=== PATIENT | female | born 1980 | race Caucasian/White ===

== ENCOUNTER 2016-12-21 11:02 | Emergency (ER) | payer OTHER ==
[~2016-12-21] VITALS: Ht 160 cm; Wt 71.9 kg
[~2016-12-21 11:02] MED LIST: ADVAIR 500-501 EACH IH; BACTRIM,SEPT1 TABLET PO; CLINDAMYCIN HC300 MG PO; CYMBALTA20 MG; GLIMEPIRIDE4 MG PO; GLIPIZIDE5 M1 PO; GLUCOPHAGE500 M1 PO; KEFLEX500 MG PO; KLONOPIN0.5 M1 PO; LISINOPRIL10 MG PO; LISINOPRIL2.5 MG PO; METFORMIN HCL500 M1 PO; MOTRIN IB200 MG PO; MOTRIN600 MG PO; NAPROSYN500 MG PO; NORCO 5/3251 TABLET PO; PERCOCET 5/31 TABLET PO; PRAVASTATIN SOD10 MG PO; PROVENTIL,200 INHALA IH; TRULICITY0.75 MG/0. SC; VENTOLIN HFA18 GM IH
[2016-12-21 12:12] LABS: HEMATOCRIT 40.7 % (36.0-46.0); MCHC 33.4 G/DL (30.0-36.0); MCV 92.7 FL (83-99); MEAN PLAT.VOLUME 11.3 uM^3 (9.5-12.4); PLATELET COUNT 311 K/uL (156-360); RBC DIS.WIDTH-CV 11.7 % (11.8-14.6); RBC DIS.WIDTH-SD 39.8 % (39-53); RED BLOOD COUNT 4.39 M/uL (3.80-5.20)
[2016-12-21 12:24] LABS: CHLORIDE 109 mEq/L (99-109); POTASSIUM 3.9 mEq/L (3.7-5.4); SODIUM 140 mEq/L (136-147)
[2016-12-21 12:26] LABS: GLUCOSE 165 mg/dL (70-99)
[2016-12-21 12:28] LABS: ANION GAP 7 MEQ/L (2-14); TOTAL BILIRUBIN 0.3 mg/dL (0.0-1.0)
[2016-12-21 12:30] LABS: ALKALINE PHOSPHATASE 82 IU/L (3-129); GFR ESTIMATE (CALCULATED) > 59 mL/min/
[2016-12-21 12:31] LABS: UREA NITROGEN (BUN) 14 mg/dL (9-23)
[2016-12-21 14:07] LABS: ADD MIUA? NO; BILIRUBIN NEGATIVE; BLOOD NEGATIVE; COLOR STRAW ((YELLOW)); GLUCOSE (STRIP) NEGATIVE; KETONES NEGATIVE; LEUKOCYTES NEGATIVE; NITRITE NEGATIVE; PROTEIN (STRIP) NEGATIVE; SPECIFIC GRAVITY 1.014 (1.000-1.030); UROBILINOGEN 0.2 MG/DL (0.2-1.0)
[2016-12-21 14:59] LABS: QUANTITATIVE HCG < 4.0 MIU/ML
[2016-12-21] MEDS ORDERED: MOTRIN800 MG PO (14:59)
[2016-12-21] MEDS ORDERED: BENTYL20 MG PO (14:59)
[2016-12-21] MEDS ORDERED: ZOFRAN ODT4 MG PO (14:59)
[2016-12-21 15:56] VITALS: BP 1118/72
== END 2016-12-21 15:57 | disposition home or self-care (01) ==
LOC: EME 11:02
PROVIDERS: Nurse Practitioner Family
DX: K29.70 Gastritis, unspecified, without bleeding (principal); E11.9 Type 2 diabetes mellitus without complications; J45.909 Unspecified asthma, uncomplicated
CPT/HCPCS: 74000; 80053; 81003; 84702; 85027; 99281; 99284; J0500; J2405; J7030

== ENCOUNTER → 2017-01-12 | Outpatient (CLI) | payer OTHER ==
[~2017-01-12] VITALS: Ht 160 cm; Wt 68.0 kg
[~2017-01-12] MED LIST changes: +BENTYL20 MG PO; +MOTRIN800 MG PO; +TRULICITY1.5 MG/0.5 SC; +ZOFRAN ODT4 MG PO
[2017-01-12 10:48] LABS: POINT-OF-CARE METER ID UU13113694
== END | disposition home or self-care (01) ==
LOC: AMB 09:06
PROVIDERS: Urology
DX: N20.2 Calculus of kidney with calculus of ureter (principal); E11.9 Type 2 diabetes mellitus without complications
CPT/HCPCS: 74010; 82948; 93005; J2250; J2405; J3010

== ENCOUNTER 2018-02-23 22:13 | Emergency (ER) | payer OTHER ==
[~2018-02-23] VITALS: Ht 160 cm; Wt 69.2 kg
[2018-02-24 00:08] LABS: BASOPHIL (%) 0.9 % (0-1); BASOPHIL COUNT 0.1 K/uL (0-0.1); EOSINOPHIL (%) 4.2 % (0-5); EOSINOPHIL COUNT 0.4 K/uL (0-0.3); HEMATOCRIT 40.2 % (36.0-46.0); HEMOGLOBIN 14.1 G/DL (11.9-15.5); IMMATURE GRANULOCYTE (%) 0.2 % (0.0-0.7); LYMPHOCYTE (%) 31.8 % (15-42); LYMPHOCYTE COUNT 3.1 K/uL (1.0-2.8); MCH 31.8 PG (29.0-34.0); MCHC 35.1 G/DL (30.0-36.0); MCV 90.7 FL (83-99); MONOCYTE (%) 5.2 % (3-12); MONOCYTE COUNT 0.5 K/uL (0-0.8); NEUTROPHIL (%) 57.7 % (45-76); NEUTROPHIL COUNT 5.6 K/uL (1.8-6.4); PLATELET COUNT 317 K/uL (156-360); RBC DIS.WIDTH-CV 11.2 % (11.8-14.6); RBC DIS.WIDTH-SD 37.2 % (39-53); RED BLOOD COUNT 4.43 M/uL (3.80-5.20); WHITE BLOOD COUNT 9.7 K/uL (4.1-10.2)
[2018-02-24 00:17] VITALS: BP 126/95
[2018-02-24 00:20] LABS: ALBUMIN 3.8 g/dL (3.2-4.8)
[2018-02-24 00:21] LABS: CHLORIDE 99 mEq/L (99-109); POTASSIUM 3.9 mEq/L (3.7-5.4); SODIUM 136 mEq/L (136-147)
[2018-02-24 00:23] LABS: GLUCOSE 295 mg/dL (70-99); TOTAL PROTEIN 7.6 g/dL (6.4-8.3)
[2018-02-24 00:25] LABS: TOTAL BILIRUBIN 0.3 mg/dL (0.0-1.0)
[2018-02-24 00:26] LABS: ALKALINE PHOSPHATASE 115 IU/L (3-129)
[2018-02-24 00:27] LABS: CREATININE 0.8 mg/dL (0.6-1.3); GFR ESTIMATE (CALCULATED) > 59 mL/min/
[2018-02-24 00:28] LABS: AST (GOT) 17 IU/L (2-34); DIRECT BILIRUBIN 0.1 mg/dL (0.0-0.3); UREA NITROGEN (BUN) 17 mg/dL (9-23)
[2018-02-24 00:30] LABS: ALT (GPT) 23 IU/L (3-49)
== END 2018-02-24 00:19 | disposition home or self-care (01) ==
LOC: EME 22:13
PROVIDERS: Physician Assistant
DX: Z77.21 Contact with and (suspected) exposure to potentially hazardous body fluids (principal); S60.511A Abrasion of right hand, initial encounter; Z20.5 Contact with and (suspected) exposure to viral hepatitis; W50.4XXA Accidental scratch by another person, initial encounter; Y92.239 Unspecified place in hospital as the place of occurrence of the external cause; Y99.0 Civilian activity done for income or pay; E11.9 Type 2 diabetes mellitus without complications
CPT/HCPCS: 80048; 80076; 85025; 99281; 99284